=== PATIENT | female | born 2005 | race Caucasian/White ===

== ENCOUNTER 2024-06-27 12:19 | Emergency (ER) | payer OTHER, SELFPAY ==
[2024-06-27 12:58] VITALS: BP 107/80; PULSE 117; RESP 18; TEMP 37.6; O2SAT 97; BMI 47.8
--- NOTE | 2024-06-27 13:05 | ED_ITS ---
Discharge Plan Disposition Patient Disposition: Home, Self-Care Condition: Good Prescriptions Prescriptions: New ondansetron 4 mg tablet,disintegrating 4 mg PO Q8H PRN (Reason: nausea and vomiting) Qty: 15 0RF No Action levothyroxine 50 mcg tablet 50 mcg PO DAILY Patient Comments: TAKE 1 TABLET BY MOUTH ONCE DAILY BEFORE MORNING MEAL ondansetron 4 mg tablet,disintegrating 4 mg PO DAILY Patient Comments: DISSOLVE 1 TABLET IN MOUTH EVERY 8 HOURS NEEDED FOR NAUSEA FOR VOMITING drospirenone-ethinyl estradiol [Loryna (28)] 3-0.02 mg tablet 3 tab PO DAILY Patient Comments: TAKE 1 TABLET BY MOUTH ONCE DAILY Referrals Follow up/Referrals: Provider,Referral, MD [Primary Care Provider] - See instructions Activity Restrictions/Add. Instructions Additional Instructions/Restrictions: Drink extra fluids with and between meals. If you have difficulty drinking, try very small amounts of water or suck on ice chips. ? Avoid fruit juices, as these do not replace minerals and can actually increase diarrhea. ? Children and adults can use sports drinks to replenish electrolytes. Younger children and infants should use products formulated for children, like oral rehydration solutions. ? Eat food in small amounts and let your stomach recover. ? Get lots of rest. You may feel tired or weak. ? No greasy or fried foods for the next 24-48 hours BRAT diet Bananas Rice Apples and Viburnum ? Make sure to drink plenty of liquids ? Return if needed ? Straight to ER if any life threatening symptoms ? Zofran as prescribed ? You was given an outpatient order for diarrhea panel, please collect specimen and bring back to outpatient lab then call back to the [facility] or follow up with family doctor for results ? Follow up with family doctor in the next 48-72 hours if no improvement or any worsening of symptoms Clinical Impressions Clinical Impression: Nausea vomiting and diarrhea Stand Alone Forms Stand Alone Forms: Work/School Release Instructions Patient Instructions: Diarrhea, Nausea and Vomiting-Adult Print Language Print Language: Yoruba Discharge ED Provider: Dayanara Peters [facility] [place] General Stated complaint: vomiting, diarrhea, fever, dizzy, Mode of Arrival: Ambulatory Source of Information: Patient Time Seen by Provider: 06/27/24 13:05 Description of Symptoms (Recalled from Triage Doc. 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 and yesterday she started with N/V and last night she started with diarrhea States today she was still having N/V/D and wasnt able to work so she came in to get checked and get something to help with the vomiting Related Data Home Medications ?Medication ?Instructions ?Recorded ?Confirmed drospirenone 3 mg-ethinyl 3 tab PO DAILY 06/27/24 06/27/24 estradiol 0.02 mg tablet (Loryna (28)) levothyroxine 50 mcg tablet 50 mcg PO DAILY 06/27/24 06/27/24 ondansetron 4 mg disintegrating 4 mg PO DAILY 06/27/24 06/27/24 tablet Previous Rx's ?Medication ?Instructions ?Recorded ondansetron 4 mg disintegrating 4 mg PO Q8H PRN nausea and 06/27/24 tablet vomiting #15 tabs Allergies Allergy/AdvReac Type Severity Reaction Status Date / Time No Known Allergies Allergy Verified 06/27/24 13:00 Worker's Comp Is this a Worker's Comp case?: No [facility] Disclaimer: The information contained in this section may have been updated after the patient was seen, as this information can be updated by other users. Social History Smoking Status: Unknown if ever smoked alcohol intake: never current occupational status: employed Travel in the last 8 weeks: None ROS Obtained: Yes All systems reviewed & no additional complaints except as documented and Yes Systems reviewed as appropriate & no additional complaints except as documented Constitutional Constitutional: Reports system reviewed and no additional complaints, except as documented, Reports as per HPI, Reports body ache and Reports fever(s) ENT Ears, Nose, Mouth, and Throat: Reports system reviewed and no additional complaints, except as documented and Reports as per HPI Cardiovascular Cardiovascular: Reports system reviewed and no additional complaints, except as documented and Reports as per HPI Respiratory Respiratory: Reports system reviewed and no additional complaints, except as documented and Reports as per HPI Gastrointestinal Gastrointestingal: Reports system reviewed and no additional complaints, except as documented, as per HPI, diarrhea, nausea and vomiting; Denies abdominal pain Physical Exam General General appearance: alert and in no apparent distress ENT ENT exam: Present mucous membranes moist Respiratory Respiratory exam: Present normal lung sounds bilaterally; Absent respiratory distress or wheezes Cardiovascular Cardiovascular exam: Present regular rate, normal rhythm and tachycardia Abdominal Exam Abdominal exam: Present soft and normal bowel sounds; Absent distention or tenderness Neurological Exam Neurological exam: Present alert, oriented X3 and normal gait Medical Decision Making Medical Records Screening: Per USPSTF and CDC recommendations, given the prevalence of disease in our region, it is our hospital?s policy to screen for HIV and viral Hepatitis for all patients aged 18 and over and those with ongoing risk factors. Hill Inquiry Pt receiving controlled substance: No Hill was queried for this patient: No Vital Signs: 06/27/24 12:58 Temperature 99.6 F Temperature Source Oral Pulse Rate [Left Radial] 117 H Respiratory Rate 18 Blood Pressure [Left Arm] 107/80 L Blood Pressure Mean [Left Arm] 89 02 Sat by Pulse Oximetry 97 Lab Data Lab results reviewed: Yes I reviewed the patient's lab results. Medical Decision Narrative: Patient states she is feeling better after fluids and zofran, sitting up on exam table drinking gatoraid not had any diarrhea to collect sample
[2024-06-27 13:24] LABS: UTC Pregnancy Test, Urine Negative (Negative)
[2024-06-27] MEDS: ONDANSETRON 4MG ODT 4 MG SL (13:34)
[2024-06-27] MEDS: 0.9 % SODIUM CHLORIDE 1000ML 1,000 ML 999 ML IV (13:34)
[2024-06-27] MEDS: ONDANSETRON 4MG/2ML VIAL 4 MG IV (13:50)
[2024-06-27 14:46] VITALS: BP 107/80; PULSE 117; RESP 18; TEMP 37.6
[2024-06-27 15:34] LABS: Adenovirus F 40/41, stool Not Detected (NotDetected); Astrovirus Not Detected (NotDetected); Campylobacter Not Detected (NotDetected); Clostridium Difficile A/B, PCR Not Detected (NotDetected); Cyclospora Cayetanesis Not Detected (NotDetected); Entamoeba histolytica Not Detected (NotDetected); Enteroaggregative E coli Not Detected (NotDetected); Enteropathogenic E coli Not Detected (NotDetected); Enterotoxigenic E coli Not Detected (NotDetected); Giardia lamblia Not Detected (NotDetected); Norovirus Not Detected (NotDetected); Plesimonas Shigalloides, PCR Not Detected (NotDetected); Rotavirus A Not Detected (NotDetected); Salmonella, PCR Not Detected (NotDetected); Sapovirus Not Detected (NotDetected); Shiga-like toxin E coli Not Detected (NotDetected); Shigella Enterovasive E coli Not Detected (NotDetected); Vibrio Cholerae Not Detected (NotDetected); Vibrio, PCR Not Detected (NotDetected); Yersinia Entercolitica, PCR Not Detected (NotDetected)
[2024-06-29 14:05] LABS: Cryptosporidium Detected (NotDetected)
== END 2024-06-27 14:59 | disposition home or self-care (01) ==
PROVIDERS: Emergency Provider Nurse Practitioner
DX: R11.2 Nausea with vomiting, unspecified (principal); R19.7 Diarrhea, unspecified; R50.9 Fever, unspecified; R42 Dizziness and giddiness
CPT/HCPCS: 81025; 87507; 96361; 96374; 99212; G0381; J2405; J7030; Q0162

== ENCOUNTER 2024-07-06 13:59 | Emergency (ER) | payer OTHER, SELFPAY ==
--- NOTE | 2024-07-06 14:28 | ED_ITS ---
Discharge Plan Disposition Patient Disposition: Home, Self-Care Condition: Good Prescriptions Prescriptions: New nitazoxanide 500 mg tablet 500 mg PO BID 3 Days Qty: 6 0RF Rx Instructions: must administer with a meal/food ondansetron 4 mg Tablet,Disintegrating 4 mg PO Q8H PRN (Reason: Nausea) Qty: 12 0RF No Action levothyroxine 50 mcg tablet 50 mcg PO DAILY Patient Comments: TAKE 1 TABLET BY MOUTH ONCE DAILY BEFORE MORNING MEAL ondansetron 4 mg tablet,disintegrating 4 mg PO DAILY Patient Comments: DISSOLVE 1 TABLET IN MOUTH EVERY 8 HOURS NEEDED FOR NAUSEA FOR VOMITING drospirenone-ethinyl estradiol [Loryna (28)] 3-0.02 mg tablet 3 tab PO DAILY Patient Comments: TAKE 1 TABLET BY MOUTH ONCE DAILY ondansetron 4 mg tablet,disintegrating 4 mg PO Q8H PRN (Reason: nausea and vomiting) Qty: 15 0RF Referrals Follow up/Referrals: Provider,Referral, MD [Primary Care Provider] - See instructions Activity Restrictions/Add. Instructions Additional Instructions/Restrictions: Drink plenty of fluids. Water or an electrolyte solution like pedialyte would be best. Take the medications as directed. Follow up with your regular doctor. 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 She states that she is still having diarrhea. She has had abdominal cramping but denies pain. Related Data Home Medications ?Medication ?Instructions ?Recorded ?Confirmed drospirenone 3 mg-ethinyl 3 tab PO DAILY 06/27/24 06/27/24 estradiol 0.02 mg tablet (Loryna (28)) levothyroxine 50 mcg tablet 50 mcg PO DAILY 06/27/24 06/27/24 ondansetron 4 mg disintegrating 4 mg PO DAILY 06/27/24 06/27/24 tablet Previous Rx's ?Medication ?Instructions ?Recorded ondansetron 4 mg disintegrating 4 mg PO Q8H PRN nausea and 06/27/24 tablet vomiting #15 tabs nitazoxanide 500 mg tablet 500 mg PO BID 3 days #6 tabs 07/06/24 ondansetron 4 mg disintegrating 4 mg PO Q8H PRN Nausea #12 tabs 07/06/24 tablet Allergies Allergy/AdvReac Type Severity Reaction Status Date / Time No Known Allergies Allergy Verified 06/27/24 13:00 [facility] Disclaimer: The information contained in this section may have been updated after the patient was seen, as this information can be updated by other users. Social History (Updated 06/27/24 @ 14:36 by Dayanara Peters APRN) Smoking Status: Unknown if ever smoked alcohol intake: never current occupational status: employed Travel in the last 8 weeks: None ROS Obtained: Yes All systems reviewed & no additional complaints except as documented Constitutional Constitutional: Denies chills and Denies fever(s) Eyes Eyes: Denies eye discharge ENT Ears, Nose, Mouth, and Throat: Denies dizziness, Denies otalgia and Denies sore throat Cardiovascular Cardiovascular: Denies chest pain Respiratory Respiratory: Denies shortness of breath, Denies chest congestion, Denies cough, Denies stridor and Denies wheezing Gastrointestinal Gastrointestingal: Reports as per HPI, cramping and nausea; Denies vomiting Musculoskeletal Musculoskeletal: Reports system reviewed and no additional complaints, except as documented and Denies arthralgias Integumentary/Breasts Skin/Breast: Denies rash Neurologic Neurologic: Denies dizziness and Denies paresthesias Allergic/Immunologic Allergic/Immunologic: Denies wheezing Physical Exam General General appearance: alert and in no apparent distress Head Head exam: atraumatic and normocephalic Eye Eye exam: Present normal appearance, PERRL and EOMI ENT ENT exam: Present normal exam, normal oropharynx, mucous membranes moist, TM's normal bilaterally and normal external ear exam Neck Neck exam: Present normal inspection, full ROM and trachea midline; Absent tenderness, meningismus or lymphadenopathy Chest Chest inspection: Present normal inspection and symmetric chest wall rise; Absent tenderness, rash or abscess Respiratory Respiratory exam: Present normal lung sounds bilaterally; Absent respiratory distress, wheezes or stridor Cardiovascular Cardiovascular exam: Present regular rate and normal rhythm; Absent irregular rhythm, systolic murmur, diastolic murmur or JVD Abdominal Exam Abdominal exam: Present soft and hyperactive bowel sounds; Absent distention, tenderness, guarding, rebound, rigidity, psoas sign, obturator sign, heel tap sign, Velázquez's sign, Rovsing's sign or tenderness at McBurney's Point Extremities Exam Extremities exam: Present normal inspection and full ROM; Absent tenderness Back Exam Back exam: Present normal inspection and full ROM; Absent tenderness, CVA tenderness (R) or CVA tenderness (L) Neurological Exam Neurological exam: Present alert, oriented X3 and CN II-XII intact Psychiatric Psychiatric exam: Present normal affect and normal mood Skin Skin exam: Present warm, dry, intact and normal color Lymphatic Lymphatic Findings: no adenopathy Medical Decision Making Medical Records Medical records reviewed: No I reviewed the patient's medical records. Screening: Per USPSTF and CDC recommendations, given the prevalence of disease in our region, it is our hospital?s policy to screen for HIV and viral Hepatitis for all patients aged 18 and over and those with ongoing risk factors. Hill Inquiry Pt receiving controlled substance: No Lab Data Lab results reviewed: Yes I reviewed the patient's lab results.
[2024-07-06 14:33] VITALS: BP 111/70; PULSE 90; RESP 18; TEMP 36.8; O2SAT 96; BMI 49.4
[2024-07-06 14:46] VITALS: BP 111/70; PULSE 90; RESP 18; TEMP 36.8
== END 2024-07-06 14:51 | disposition home or self-care (01) ==
PROVIDERS: Emergency Provider Nurse Practitioner Family
DX: R19.7 Diarrhea, unspecified (principal); A07.2 Cryptosporidiosis
CPT/HCPCS: 99213; G0381

== ENCOUNTER 2024-08-30 13:56 | Emergency (ER) | payer OTHER, SELFPAY ==
[2024-08-30 14:16] VITALS: BP 121/77; PULSE 98; RESP 18; TEMP 36.8; O2SAT 97; BMI 50.3
[2024-08-30 14:26] LABS: Apearance,Urine Clear (Clear); Bilirubin,Urine Negative (Negative); Blood, Urine 3+ (Negative); Color,Urine Yellow (Yellow); Glucose,Urine (UA) Negative (Negative); Ketones,Urine Negative (Negative); Protein,Urine Negative (Negative); UTC Leukocyte Esterase,Urine Trace (Negative); UTC Nitrate,Urine Negative (Negative); Urobilinogen,Urine 0.2 EU/dl (0.2)
[2024-08-30 14:27] LABS: UTC Pregnancy Test, Urine Negative (Negative)
--- NOTE | 2024-08-30 14:30 | EXP.UTC ---
Discharge Plan Disposition Patient Disposition: Home, Self-Care Condition: Good Prescriptions Prescriptions: New ondansetron 4 mg Tablet,Disintegrating 4 mg PO Q8H PRN (Reason: Nausea) Qty: 12 0RF ibuprofen [IBU] 800 mg tablet 800 mg PO Q8HP PRN (Reason: Moderate Pain) Qty: 30 0RF No Action levothyroxine 50 mcg tablet 50 mcg PO DAILY Patient Comments: TAKE 1 TABLET BY MOUTH ONCE DAILY BEFORE MORNING MEAL ondansetron 4 mg tablet,disintegrating 4 mg PO DAILY Patient Comments: DISSOLVE 1 TABLET IN MOUTH EVERY 8 HOURS NEEDED FOR NAUSEA FOR VOMITING Referrals Follow up/Referrals: Provider,Referral, MD [Primary Care Provider] - See instructions Activity Restrictions/Add. Instructions Additional Instructions/Restrictions: Drink plenty of fluids. Take tylenol or ibuprofen for pain or fever. Follow up with your regular doctor. GO TO THE ER FOR ANY WORSENING SYMPTOMS Clinical Impressions Clinical Impression: Abnormal uterine bleeding, Abdominal pain Stand Alone Forms Stand Alone Forms: Work/School Release Print Language Print Language: French Discharge ED Provider: Saud Jackson [facility] General Stated complaint: nausea, abnormal vag bleeding Mode of Arrival: Ambulatory Source of Information: Patient Time Seen by Provider: 08/30/24 14:05 Description of Symptoms (Recalled from Triage Doc. by RN): NAUSEA, TRAMMELL, ABD CRAMPS, ABNORMAL BLEEDING, DIZZY HEENT Symptoms (Recalled from RN notes): Yes Resp Symptoms (Recalled from RN notes): No Skin Symptoms (Recalled from RN notes): No MS Symptoms (Recalled from RN notes): No Functional Status (Recalled from RN notes): WNL Related Data Home Medications ?Medication ?Instructions ?Recorded ?Confirmed levothyroxine 50 mcg tablet 50 mcg PO DAILY 06/27/24 08/30/24 ondansetron 4 mg disintegrating 4 mg PO DAILY 06/27/24 08/30/24 tablet Previous Rx's ?Medication ?Instructions ?Recorded ibuprofen 800 mg tablet (IBU) 800 mg PO Q8HP PRN Moderate Pain 08/30/24 #30 tabs ondansetron 4 mg disintegrating 4 mg PO Q8H PRN Nausea #12 tabs 08/30/24 tablet Allergies Allergy/AdvReac Type Severity Reaction Status Date / Time No Known Allergies Allergy Verified 06/27/24 13:00 Worker's Comp Is this a Worker's Comp case?: No [facility] Disclaimer: The information contained in this section may have been updated after the patient was seen, as this information can be updated by other users. Social History (Updated 06/27/24 @ 14:36 by Dayanara Peters APRN) Smoking Status: Unknown if ever smoked alcohol intake: never current occupational status: employed Travel in the last 8 weeks: None Have you lived/traveled outside [place] in past 30 days?: No Contact w/someone who lives/traveled outside [place] past 30 days?: No Exposure to someone with infectious disease in past 14 days?: No Do you have a fever (greater than 100.4 F or 38 C)?: No Have you tested positive for COVID-19: No Exposed to someone with COVID-19 in past 14 days?: No Do you have a sore throat?: No Do you have a cough?: No Do you have any weakness?: No Do you have any diarrhea?: No Are you experiencing any unusual bleeding?: Yes Do you have any muscle aches/pain?: No Do you have any abdominal pain?: No Are you experiencing loss of taste or smell?: No ROS Obtained: Yes All systems reviewed & no additional complaints except as documented Constitutional Constitutional: Denies chills and Denies fever(s) Eyes Eyes: Denies eye discharge ENT Ears, Nose, Mouth, and Throat: Denies dizziness, Denies otalgia and Denies sore throat Cardiovascular Cardiovascular: Denies chest pain Respiratory Respiratory: Denies shortness of breath, Denies chest congestion, Denies cough, Denies stridor and Denies wheezing Gastrointestinal Gastrointestingal: Denies nausea or vomiting Musculoskeletal Musculoskeletal: Reports system reviewed and no additional complaints, except as documented and Denies arthralgias Integumentary/Breasts Skin/Breast: Denies rash Neurologic Neurologic: Denies dizziness and Denies paresthesias Allergic/Immunologic Allergic/Immunologic: Denies wheezing Physical Exam General General appearance: alert and in no apparent distress Head Head exam: atraumatic and normocephalic Eye Eye exam: Present normal appearance, PERRL and EOMI ENT ENT exam: Present normal exam, normal oropharynx, mucous membranes moist, TM's normal bilaterally and normal external ear exam Neck Neck exam: Present normal inspection, full ROM and trachea midline; Absent tenderness, meningismus or lymphadenopathy Chest Chest inspection: Present normal inspection and symmetric chest wall rise; Absent tenderness, rash or abscess Respiratory Respiratory exam: Present normal lung sounds bilaterally; Absent respiratory distress, wheezes or stridor Cardiovascular Cardiovascular exam: Present regular rate and normal rhythm; Absent irregular rhythm, systolic murmur, diastolic murmur or JVD Abdominal Exam Abdominal exam: Present soft and normal bowel sounds; Absent distention, tenderness, guarding, rebound, rigidity, psoas sign, obturator sign, heel tap sign, Velázquez's sign, Rovsing's sign or tenderness at McBurney's Point Extremities Exam Extremities exam: Present normal inspection and full ROM; Absent tenderness Back Exam Back exam: Present normal inspection and full ROM; Absent tenderness, CVA tenderness (R) or CVA tenderness (L) Neurological Exam Neurological exam: Present alert, oriented X3 and CN II-XII intact Psychiatric Psychiatric exam: Present normal affect and normal mood Skin Skin exam: Present warm, dry, intact and normal color Lymphatic Lymphatic Findings: no adenopathy Medical Decision Making Medical Records Screening: Per USPSTF and CDC recommendations, given the prevalence of disease in our region, it is our hospital?s policy to screen for HIV and viral Hepatitis for all patients aged 18 and over and those with ongoing risk factors. Hill Inquiry Pt receiving controlled substance: No Vital Signs: 08/30/24 14:16 Temperature 98.3 F Temperature Source Oral Pulse Rate [Left Radial] 98 H Respiratory Rate 18 Blood Pressure [Left Arm] 121/77 Blood Pressure Mean [Left Arm] 91 02 Sat by Pulse Oximetry 97 Lab Data Lab Results 08/30/24 14:20: Urine Color Yellow, Urine Appearance Clear, Urine pH 7.0, Ur Specific [place] 1.020, Urine Protein Negative, Urine Glucose (UA) Negative, Urine Ketones Negative, Urine Blood 3+, Urine Nitrate Negative, Urine Bilirubin Negative, Urine Urobilinogen 0.2, Ur Leukocyte Esterase Trace, Tst Clinic Negative Orders (Tests/Meds): ORDERS Category Date Time Status Urine Culture Stat Micro 08/30/24 14:25 Ordered
[2024-08-30 15:24] VITALS: BP 121/77; PULSE 98; RESP 18; TEMP 36.8
== END 2024-08-30 15:28 | disposition home or self-care (01) ==
PROVIDERS: Emergency Provider Nurse Practitioner Family
DX: N93.9 Abnormal uterine and vaginal bleeding, unspecified (principal)
CPT/HCPCS: 81003; 81025; 87086; 99213; G0381

== ENCOUNTER 2024-09-04 21:01 | Emergency (ER) | payer OTHER, SELFPAY ==
[2024-09-04 21:46] VITALS: BP 127/81; PULSE 76; RESP 20; TEMP 36.9; O2SAT 99; BMI 41.1
--- NOTE | 2024-09-04 22:48 | CT_ITS ---
PROCEDURE INFORMATION: Exam: CT Abdomen And Pelvis With Contrast Exam date and time: 09/05/2024 12:41 AM Age: 19 years old Clinical indication: Abdominal pain; Additional info: Pelvic pain/cramping, abnormal vaginal bleeding TECHNIQUE: Imaging protocol: Computed tomography of the abdomen and pelvis with contrast. Radiation optimization: All CT scans at this facility use at least one of these dose optimization techniques: automated exposure control; mA and/or kV adjustment per patient size (includes targeted exams where dose is matched to clinical indication); or iterative reconstruction. Contrast material: ISOVUE; Contrast volume: 75 ml; Contrast route: IV; COMPARISON: No relevant prior studies available. FINDINGS: Liver: Hepatomegaly. No mass. Gallbladder and biliary ducts: Normal. No calcified stones. No ductal dilation. Pancreas: Normal. No ductal dilation. Spleen: Normal. No splenomegaly. Adrenal glands: Normal. No mass. Kidneys and ureters: Normal. No hydronephrosis. Stomach and bowel: Unremarkable. No obstruction. No mucosal thickening. Appendix: No evidence of appendicitis. Intraperitoneal space: Unremarkable. No free air. No significant fluid collection. Vasculature: Unremarkable. No abdominal aortic aneurysm. Lymph nodes: Unremarkable. No enlarged lymph nodes. Urinary bladder: Unremarkable as visualized. Reproductive: Unremarkable as visualized. Bones/joints: Degenerative changes of the spine. No acute fracture. Soft tissues: Unremarkable. IMPRESSION: No acute findings.
[2024-09-04 22:53] LABS: Eosinophils % 1.7 % (0.1-12.0); Hemoglobin 12.3 g/dL (12.2-16.2); Lymphocytes % 28.4 % (10-50); Mean Corpuscular HGB Conc 32.4 g/dL (31.8-35.4); Mean Corpuscular Hemoglobin 30.3 pg (27.0-31.2); Mean Corpuscular Volume 93.6 fl (81-99); Mean Platelet Volume 9.2 fl (7.4-10.4); Monocytes % 7.2 % (1.7-9.3); Neutrophils % 61.7 % (37.0-80.0); Platelet Count 312 K/mm3 (142-424); Red Blood Count 4.06 M/mm3 (4.20-5.40); Red Cell Distribution Width 12.7 % (11.5-17.5); White Blood Count 10.7 K/mm3 (4.8-10.8)
[2024-09-04 22:54] LABS: Basophils # 0.1 K/mm3 (0-0.2); Basophils % 0.6 % (0.1-2.0); Eosinophils # 0.2 K/mm3 (0.0-0.4); Monocytes # 0.8 K/mm3 (0.1-1.0); Neutrophils # 6.6 K/mm3 (1.8-7.8)
[2024-09-04 22:59] LABS: Chloride 105 mmol/L (98-107); Potassium 4.3 mmoL/L (3.5-5.1); Sodium 135 mmol/L (136-145)
[2024-09-04 23:00] LABS: HCG Qualitative, Serum Negative (Negative)
[2024-09-04 23:02] LABS: Alanine Aminotransferase 22 U/L (12-78); Albumin/Globulin Ratio 1.4 (1.1-1.8); Alkaline Phosphatase 46 U/L (38-126); Anion Gap 6.3 mEq/L (5-15); Aspartate Amino Transferase 26 U/L (14-36); Bilirubin,Total 1.2 mg/dl (0.2-1.3); Blood Urea Nitrogen 14 mg/dl (7-17); Calcium 9.3 mg/dl (8.4-10.2); Carbon Dioxide 28 mmol/L (22.0-30.0); Creatinine Clearance Estimated 191 mL/min (50-200); Estimated Glomerular Filt Rate 91 ml/min (>60); GFR (African American) 110 ML/MIN (>60); Globulin 2.9 g/dL (1.3-3.2); Glucose 88 mg/dl (74-100); Total Protein,Serum 6.9 g/dl (6.3-8.2)
[2024-09-04 23:43] LABS: HIV Combo NEGATIVE (Negative)
--- NOTE | 2024-09-05 00:02 | HMH.EDGENADL ---
Discharge Plan Disposition Patient Disposition: Home, Self-Care Condition: Good Prescriptions Prescriptions: No Action levothyroxine 50 mcg tablet 50 mcg PO DAILY Patient Comments: TAKE 1 TABLET BY MOUTH ONCE DAILY BEFORE MORNING MEAL ondansetron 4 mg tablet,disintegrating 4 mg PO DAILY Patient Comments: DISSOLVE 1 TABLET IN MOUTH EVERY 8 HOURS NEEDED FOR NAUSEA FOR VOMITING ondansetron 4 mg Tablet,Disintegrating 4 mg PO Q8H PRN (Reason: Nausea) Qty: 12 0RF ibuprofen [IBU] 800 mg tablet 800 mg PO Q8HP PRN (Reason: Moderate Pain) Qty: 30 0RF Referrals Follow up/Referrals: Mikayla Mccormack DO [Staff Physician] - See instructions (AUB, needs OB, new to [facility]) Rey Mccormack DO [Staff Physician] - See instructions (establish care) Provider,Referral, [Primary Care Provider] - See instructions Activity Restrictions/Add. Instructions Additional Instructions/Restrictions: You were evaluated in the ER and are appropriate for discharge at this time. Take Tylenol and ibuprofen if needed for pain, do not exceed the recommended dose on the bottle. Drink water and eat a small snack each time you take these medications to avoid side effects. Please follow-up with OB as soon as possible, call their office for an appointment. Discuss your discomfort and abnormal vaginal bleeding. You have been referred to Dr. Mikayla Mccormack for this purpose. Also follow-up with your primary care doctor for reevaluation. You have been referred to Dr. Rey Mccormack for this. Return to the ER with new, worsening, or otherwise concerning symptoms. Clinical Impressions Clinical Impression: Abnormal uterine bleeding, Abdominal pain Instructions Patient Instructions: DI for Acute Abdominal Pain Print Language Print Language: Palauan Discharge ED Provider: Paul Miranda General Adult HPI <Alla Guerrero DO - Last Filed: 09/05/24 00:06> General Chief complaint: Abdominal Pain Stated complaint: dizzy, adb pain Time Seen by Provider: 09/04/24 22:39 Mode of Arrival: Ambulatory Source of Information: Patient Limitations: No Limitations Description of Symptoms (Recalled from ER Triage Doc. by RN): Pt states she has had abdominal pain for past week Pain with sex and some vaginal bleeding intermittantly. Pt also having nausea past 2 days History of Present Illness HPI narrative: This patient is a 19-year-old female who denies significant past medical history presenting to the emergency department for evaluation with concern for lower abdominal pain/cramping. She also notes nausea, but no vomiting. No fevers, chills, hematochezia, melena. She does note some diarrhea and increase in frequency of bowel movements. She states she is having some abnormal vaginal bleeding. Her last menstrual period was at the beginning of this month and was normal for her. She was seen in [facility] for this on 08/30/2024 and was told that her urine test is negative and to go to the ED if symptoms get worse. She has continued cramping, now migratory to the right lower quadrant, prompting evaluation today. No prior abdominal surgeries. She was on control but stopped taking it this month. Related Data Home Medications ?Medication ?Instructions ?Recorded ?Confirmed levothyroxine 50 mcg tablet 50 mcg PO DAILY 06/27/24 08/30/24 ondansetron 4 mg disintegrating 4 mg PO DAILY 06/27/24 08/30/24 tablet Previous Rx's ?Medication ?Instructions ?Recorded ibuprofen 800 mg tablet (IBU) 800 mg PO Q8HP PRN Moderate Pain 08/30/24 #30 tabs ondansetron 4 mg disintegrating 4 mg PO Q8H PRN Nausea #12 tabs 08/30/24 tablet Allergies Allergy/AdvReac Type Severity Reaction Status Date / Time No Known Allergies Allergy Verified 06/27/24 13:00 [facility] <Alla Guerrero DO - Last Filed: 09/05/24 00:06> [facility] Disclaimer: The information contained in this section may have been updated after the patient was seen, as this information can be updated by other users. Social History Smoking Status: Never smoker alcohol intake: never current occupational status: employed Travel in the last 8 weeks: None Have you lived/traveled outside [place] in past 30 days?: No Contact w/someone who lives/traveled outside [place] past 30 days?: No Exposure to someone with infectious disease in past 14 days?: No Do you have a fever (greater than 100.4 F or 38 C)?: No Have you tested positive for COVID-19: No Exposed to someone with COVID-19 in past 14 days?: No Do you have a sore throat?: No Do you have a cough?: No Do you have any weakness?: No Do you have any diarrhea?: No Are you experiencing any unusual bleeding?: No Do you have any muscle aches/pain?: No Do you have any abdominal pain?: Yes Are you experiencing loss of taste or smell?: No <Alla Guerrero DO - Last Filed: 09/05/24 00:06> ROS Obtained: Yes All systems reviewed & no additional complaints except as documented Physical Exam <Alla Guerrero DO - Last Filed: 09/05/24 00:06> General General appearance: alert and in no apparent distress Head Head exam: atraumatic and normocephalic Eye Eye exam: Present normal appearance, PERRL and EOMI ENT ENT exam: Present normal exam, normal oropharynx, mucous membranes moist and normal external ear exam Neck Neck exam: Present normal inspection, full ROM and trachea midline; Absent tenderness Chest Chest inspection: Present normal inspection and symmetric chest wall rise; Absent tenderness Respiratory Respiratory exam: Present normal lung sounds bilaterally; Absent respiratory distress, wheezes, stridor or accessory muscle use Cardiovascular Cardiovascular exam: Present regular rate and normal rhythm Abdominal Exam Abdominal exam: Present soft and tenderness (Mild lower abdominal); Absent distention, guarding, rebound or rigidity Extremities Exam Extremities exam: Present normal inspection, full ROM and normal capillary refill; Absent tenderness or edema Back Exam Back exam: Present normal inspection and full ROM; Absent tenderness Neurological Exam Neurological exam: Present alert, oriented X3, CN II-XII intact and normal gait; Absent motor sensory deficit Psychiatric Psychiatric exam: Present normal affect and normal mood Skin Skin exam: Present warm and dry Medical Decision Making <Alla Guerrero DO - Last Filed: 09/05/24 00:06> Medical Records Medical records reviewed: Yes I reviewed the patient's medical records. Screening: Per USPSTF and CDC recommendations, given the prevalence of disease in our region, it is our hospital?s policy to screen for HIV and viral Hepatitis for all patients aged 18 and over and those with ongoing risk factors. [place] Inquiry Pt receiving controlled substance: No Vital Signs: 09/04/24 21:46 Temperature 98.4 F Temperature Source Oral Pulse Rate [Left Brachial] 76 Respiratory Rate 20 Blood Pressure [Left Arm] 127/81 Blood Pressure Mean [Left Arm] 96 Blood Pressure Source [Left Arm] Automatic Cuff Blood Pressure Position [Left Arm] Sitting 02 Sat by Pulse Oximetry 99 Oxygen Delivery Method Room Air Lab Data Lab results reviewed: Yes I reviewed the patient's lab results. Lab Results 09/04/24 22:40: WBC 10.7, RBC 4.06 L, Hgb 12.3, Hct 38.0, MCV 93.6, MCH 30.3, MCHC 32.4, RDW 12.7, Plt Count 312, MPV 9.2, Neut % (Auto) 61.7, Lymph % (Auto) 28.4, Noble % (Auto) 7.2, Eos % (Auto) 1.7, Baso % (Auto) 0.6, Neut # (Auto) 6.6, Lymph # (Auto) 3.0, Noble # (Auto) 0.8, Eos # (Auto) 0.2, Baso # (Auto) 0.1, Sodium 135 L, Potassium 4.3, Chloride 105, Carbon Dioxide 28, Anion Gap 6.3, BUN 14, Creatinine 0.80, Estimated Creat Clear 191, Estimated GFR 91, Est GFR ( Amer) 110, Glucose 88, Calcium 9.3, Total Bilirubin 1.2, AST 26, ALT 22, Alkaline Phosphatase 46, Total Protein 6.9, Albumin 4.0, Globulin 2.9, Albumin/Globulin Ratio 1.4, Serum HCG, Qual Negative, HIV Ag/Ab Combo Qual Negative 09/05/24 00:09: Urine Color Yellow, Urine Appearance Cloudy, Urine pH 6.0, Ur Specific Roslyn >= 1.030, Urine Protein Negative, Urine Glucose (UA) Negative, Urine Ketones Negative, Urine Blood Negative, Urine Nitrate Negative, Urine Bilirubin Negative, Urine Urobilinogen 0.2, Ur Leukocyte Esterase 1+ A, Urine RBC None, Urine WBC 3-5, Ur Squamous Epith Cells None, Urine Bacteria Trace 09/04/24 22:40 09/04/24 22:40 Orders (Tests/Meds): ED MEDICATIONS Generic Name Dose Route Start Last Admin Trade Name Freq PRN Reason Stop Dose Admin Sodium Chloride 10 ml 09/05/24 00:43 09/05/24 00:47 Sodium Chloride 0.9% 10ml Syr (Rad Only) IV 10/05/24 00:42 10 ml NEEDED PRN Administration Maintain IV Site Discontinued Medications Generic Name Dose Route Start Last Admin Trade Name Breana PRN Reason Stop Dose Admin Iopamidol 75 ml 09/05/24 00:43 09/05/24 00:47 Iopamidol-370 (76%);100ml Bottle IV 09/05/24 00:44 75 ml ONCE ONE Administration Ketorolac Tromethamine 15 mg 09/05/24 00:04 09/05/24 00:23 Ketorolac 30mg/Ml Vial IV 09/05/24 00:05 15 mg ONCE ONE Administration Ondansetron HCl 4 mg 09/05/24 00:04 09/05/24 00:24 Ondansetron 4mg/2ml Vial IV 09/05/24 00:05 4 mg ONCE ONE Administration ORDERS Category Date Time Status CT abdomen pelvis w con Stat Cat Scan 09/04/24 22:48 Completed Complete Blood Count Auto Diff Stat Lab 09/04/24 22:40 Completed Comprehensive Metabolic Panel Stat Lab 09/04/24 22:40 Completed HIV Combo Stat Lab 09/04/24 22:40 Completed Hep C Ab with Reflex to RNA Stat Lab 09/04/24 22:40 Received Serum [HCG Qualitative, Serum] Stat Lab 09/04/24 22:40 Completed UA [Urinalysis and Microscopic] Stat Lab 09/05/24 00:09 Completed Urine Culture Stat Micro 09/05/24 00:09 Received Medical Decision Narrative: In summary, this patient is a 19-year-old female presenting to the Emergency Department for evaluation of lower abdominal pain/cramping and nausea as well as irregular vaginal bleed. Differential diagnoses considered include but are not limited to dysmenorrhea, , appendicitis, ovarian cyst, PCOS, endometriosis, cystitis. Ruling out the most morbid conditions drove assessment. It should be noted patient's history includes obesity which is not at goal therapy. This complicates all aspects of care by increasing patient's risk for morbidity. I reviewed patient's past medical records and noted [facility] evaluation 08/30/2024 as detailed in HPI. On exam, the patient is sitting upright in bed in no acute distress with normal vital signs on cardiac telemetry. She does not appear to be in any significant pain. She has mild lower abdominal tenderness but no rebound or guarding. Workup included CBC, CMP, lipase, test, urinalysis, CT abdomen and pelvis with IV contrast. She was given IV Toradol and Zofran for symptomatic improvement. Urinalysis not concerning for infection but does have blood in the setting of vaginal bleeding. test negative. Patient care signed out to the oncoming provider, Dr. Miranda, pending CT scan. If the patient has a very large ovarian cyst, she may benefit from emergent transvaginal ultrasound to exclude ovarian torsion.if she has a normal scan, I feel that she will likely be appropriate for discharge home with close follow-up with gynecology for evaluation with concern for dysfunctional uterine bleeding. <Paul Miranda MD - Last Filed: 09/05/24 02:14> Vital Signs: 09/04/24 21:46 Temperature 98.4 F Temperature Source Oral Pulse Rate [Left Brachial] 76 Respiratory Rate 20 Blood Pressure [Left Arm] 127/81 Blood Pressure Mean [Left Arm] 96 Blood Pressure Source [Left Arm] Automatic Cuff Blood Pressure Position [Left Arm] Sitting 02 Sat by Pulse Oximetry 99 Oxygen Delivery Method Room Air Lab Data Lab Results 09/04/24 22:40: WBC 10.7, RBC 4.06 L, Hgb 12.3, Hct 38.0, MCV 93.6, MCH 30.3, MCHC 32.4, RDW 12.7, Plt Count 312, MPV 9.2, Neut % (Auto) 61.7, Lymph % (Auto) 28.4, Noble % (Auto) 7.2, Eos % (Auto) 1.7, Baso % (Auto) 0.6, Neut # (Auto) 6.6, Lymph # (Auto) 3.0, Noble # (Auto) 0.8, Eos # (Auto) 0.2, Baso # (Auto) 0.1, Sodium 135 L, Potassium 4.3, Chloride 105, Carbon Dioxide 28, Anion Gap 6.3, BUN 14, Creatinine 0.80, Estimated Creat Clear 191, Estimated GFR 91, Est GFR ( Amer) 110, Glucose 88, Calcium 9.3, Total Bilirubin 1.2, AST 26, ALT 22, Alkaline Phosphatase 46, Total Protein 6.9, Albumin 4.0, Globulin 2.9, Albumin/Globulin Ratio 1.4, Serum HCG, Qual Negative, HIV Ag/Ab Combo Qual Negative 09/05/24 00:09: Urine Color Yellow, Urine Appearance Cloudy, Urine pH 6.0, Ur Specific Roslyn >= 1.030, Urine Protein Negative, Urine Glucose (UA) Negative, Urine Ketones Negative, Urine Blood Negative, Urine Nitrate Negative, Urine Bilirubin Negative, Urine Urobilinogen 0.2, Ur Leukocyte Esterase 1+ A, Urine RBC None, Urine WBC 3-5, Ur Squamous Epith Cells None, Urine Bacteria Trace Orders (Tests/Meds): ED MEDICATIONS Generic Name Dose Route Start Last Admin Trade Name Freq PRN Reason Stop Dose Admin Sodium Chloride 10 ml 09/05/24 00:43 09/05/24 00:47 Sodium Chloride 0.9% 10ml Syr (Rad Only) IV 10/05/24 00:42 10 ml NEEDED PRN Administration Maintain IV Site Discontinued Medications Generic Name Dose Route Start Last Admin Trade Name Freq PRN Reason Stop Dose Admin Iopamidol 75 ml 09/05/24 00:43 09/05/24 00:47 Iopamidol-370 (76%);100ml Bottle IV 09/05/24 00:44 75 ml ONCE ONE Administration Ketorolac Tromethamine 15 mg 09/05/24 00:04 09/05/24 00:23 Ketorolac 30mg/Ml Vial IV 09/05/24 00:05 15 mg ONCE ONE Administration Ondansetron HCl 4 mg 09/05/24 00:04 09/05/24 00:24 Ondansetron 4mg/2ml Vial IV 09/05/24 00:05 4 mg ONCE ONE Administration ORDERS Category Date Time Status CT abdomen pelvis w con Stat Cat Scan 09/04/24 22:48 Completed Complete Blood Count Auto Diff Stat Lab 09/04/24 22:40 Completed Comprehensive Metabolic Panel Stat Lab 09/04/24 22:40 Completed HIV Combo Stat Lab 09/04/24 22:40 Completed Hep C Ab with Reflex to RNA Stat Lab 09/04/24 22:40 Received Serum [HCG Qualitative, Serum] Stat Lab 09/04/24 22:40 Completed UA [Urinalysis and Microscopic] Stat Lab 09/05/24 00:09 Completed Urine Culture Stat Micro 09/05/24 00:09 Received Medical Decision Narrative: In summary, this patient is a 19-year-old female presenting to the Emergency Department for evaluation of lower abdominal pain/cramping and nausea as well as irregular vaginal bleed. Differential diagnoses considered include but are not limited to dysmenorrhea, , appendicitis, ovarian cyst, PCOS, endometriosis, cystitis. Ruling out the most morbid conditions drove assessment. It should be noted patient's history includes obesity which is not at goal therapy. This complicates all aspects of care by increasing patient's risk for morbidity. I reviewed patient's past medical records and noted [facility] evaluation 08/30/2024 as detailed in HPI. On exam, the patient is sitting upright in bed in no acute distress with normal vital signs on cardiac telemetry. She does not appear to be in any significant pain. She has mild lower abdominal tenderness but no rebound or guarding. Workup included CBC, CMP, lipase, test, urinalysis, CT abdomen and pelvis with IV contrast. She was given IV Toradol and Zofran for symptomatic improvement. Urinalysis not concerning for infection but does have blood in the setting of vaginal bleeding. test negative. Patient care signed out to the oncoming provider, Dr. Miranda, pending CT scan. If the patient has a very large ovarian cyst, she may benefit from emergent transvaginal ultrasound to exclude ovarian torsion.if she has a normal scan, I feel that she will likely be appropriate for discharge home with close follow-up with gynecology for evaluation with concern for dysfunctional uterine bleeding. Miranda: Upon my assumption of care patient is stable, symptoms are improved. I agree with the assessment and plan from Dr. Guerrero. I reviewed labs which are reassuring, negative test. CT abdomen pelvis was personally interpreted and I do not appreciate large ovarian cyst or other acute intra-abdominal abnormality. See radiology read for final interpretation which is in agreement. On reassessment she continues to be stable and resting comfortably. She is comfortable with being discharged and is appropriate for discharge at this time. She recently moved to [facility] and does not have any providers in [facility] so I referred her to Dr. Mikayla Mccormack for OB follow-up and instructed her to follow-up with her as soon as possible for immediate reevaluation of abnormal uterine bleeding. I also gave her referral to Dr. Rey Mccormack to establish care for primary care. Patient was given instructions on symptomatic management, follow up instructions, and return precautions for the emergency department. Patient indicated understanding and was discharged in stable condition. Critical Care <Alla Guerrero, DO - Last Filed: 09/05/24 00:06> Critical Care Time Critical Care Time: No
[2024-09-05 00:13] LABS: Microscopic, Urine URINE MICROSCOPIC (MICROSCOPIC)
[2024-09-05 00:14] LABS: Bilirubin,Urine Negative (Negative); Blood, Urine Negative (Negative); Color,Urine YELLOW (Yellow); Glucose,Urine (UA) Negative (Negative); Ketones,Urine Negative (Negative); Leukocyte Esterase,Urine 1+ (Negative); Nitrate,Urine Negative (Negative); Protein,Urine Negative (Negative); Specific Gravity, Urine >= 1.030 (1.005-1.030); Urobilinogen,Urine 0.2 EU/dl (0.2)
[2024-09-05 00:15] LABS: Appearance,Urine Cloudy (Clear)
[2024-09-05] MEDS: KETOROLAC 30MG/ML VIAL 15 MG IV (00:23)
[2024-09-05] MEDS: ONDANSETRON 4MG/2ML VIAL 4 MG IV (00:24)
[2024-09-05 00:28] LABS: Bacteria,Urine Trace /lpf
[2024-09-05] MEDS: SODIUM CHLORIDE 0.9% 10ML SYR (RAD ONLY) 10 ML IV (00:47)
[2024-09-05] MEDS: IOPAMIDOL-370 (76%);100ML BOTTLE 75 ML IV (00:47)
[2024-09-05 02:15] VITALS: BP 135/86; PULSE 87; RESP 16; TEMP 36.7; O2SAT 98
--- NOTE | 2024-09-05 02:25 | PC.NURSE ---
Pt discharged to home. Skin pink warm and dry Resp full and easy Speech clear and appropriate Gait steady at time of discharge
[2024-09-07 08:29] LABS: HCV Ab Non Reactive (Non Reactive)
== END 2024-09-05 02:30 | disposition home or self-care (01) ==
PROVIDERS: Emergency Medicine; Emergency Provider Emergency Medicine
DX: N93.9 Abnormal uterine and vaginal bleeding, unspecified (principal); R10.31 Right lower quadrant pain; R42 Dizziness and giddiness; R19.7 Diarrhea, unspecified; R11.0 Nausea
CPT/HCPCS: 74177; 80053; 81001; 84703; 85025; 86803; 87086; 87389; 96374; 96375; 99285; J1885; J2405; Q9967